=== PATIENT | male | born 1980 | race Caucasian/White ===

== ENCOUNTER 2023-10-04 09:24 | Emergency (ER) | payer OTHER, SELFPAY ==
[2023-10-04 09:27] VITALS: BP 157/99
[2023-10-04 10:06] LABS: % Basophils 0.6 % (0-2); % Eosinophils 0.4 % (0-6); % Immature Granulocytes 0.3 % (0-0.5); % Lymphocytes 11.7 % (20.5-51.1); % Monocytes 5.9 % (1.7-9.3); % Neutrophils 81.1 % (42.2-75.2); Absolute Basophils 0.1 10^3/uL (0-0.2); Absolute Eosinophils 0.1 10^3/uL (0-0.7); Absolute Immature Granulocytes 0.1 10^3/uL (0-0.05); Absolute Lymphocytes 1.9 10^3/uL (1.2-3.4); Absolute Monocytes 0.9 10^3/uL (0.1-0.6); Absolute Neutrophils 12.9 10^3/uL (1.4-6.5); Hematocrit 42.6 % (39.0-52.0); Hemoglobin 15.2 g/dL (13.0-18.0); Mean Corp Hgb Conc. 35.7 g/dL (33.0-37.0); Mean Corpuscular Hgb 34.4 pg (27.0-31.0); Mean Corpuscular Volume 96.4 fL (80.0-94.0); Mean Platelet Volume 10.2 fL (7.4-10.4); Nucleated Red Blood Cells % 0 % (-); Platelet Count 220 10^3/uL (130-400); Red Blood Cell Count 4.42 10^6/uL (4.70-6.10)
[2023-10-04 10:16] LABS: ALT (SGPT) 90 U/L (0-50); AST (SGOT) 78 U/L (17-59); Albumin 4.7 g/dl (3.5-5.0); Alkaline Phosphatase 74 U/L (38-126); Blood Urea Nitrogen 16 mg/dl (9-20); Calcium 9.7 mg/dl (8.4-10.2); Carbon Dioxide 31 mmol/L (22-30); Chloride 102 mmol/L (98-107); Glucose 96 mg/dl (70-99); Potassium 4.5 mmol/L (3.5-5.1); Sodium 139 mmol/L (135-145); Total Protein 6.9 g/dl (6.3-8.2); eGFR > 60.00
--- NOTE | 2023-10-04 10:17 | ED.GENMED ---
History of Present Illness
General
Chief Complaint: Chest Pain
Source: patient
Time Seen by Provider: 10/04/23 09:56
History of Present Illness
History of Present Illness:
This patient is a 43-year-old male presents emergency department complaints of pain across the front of his chest that started approximately 6 AM this morning. The pain continues and is worse with certain movements such as turning or taking a deep
breath. He describes the pain as 'sharp' without radiation. He denies recent immobilization or trauma, history of DVT in him or family members, leg swelling. He is not an active smoker. He denies dyspnea, dizziness, fever, chills, cough, sore
throat, rhinorrhea, abdominal pain, or other complaints
Past History
Past History
ED Past Medical History: None
ED Past Surgical History: Other (Basal cell cancer removal)
Social History
Tobacco: Former smoker
Alcohol: Occasional
Drug: None
Personal:
Living: with family
Employment: Employed
Family History
Family History: CAD; Negative Early CAD
Phy Exam
Physical Exam
Physical Exam:
GENERAL: Alert , in no apparent distress, extremely well-appearing
EYE: pupils equal and reactive
NECK: Supple, no significant adenopathy.
ENT: o/p clr, mmm.
CARDIAC: Regular rate and rhythm .
LUNGS: Clear breath sounds bilaterally, no acute respiratory distress, no wheezes/rales/rhonchi
ABDOMEN: Soft, without focal tenderness, no r/g, no cvat
NEUROLOGICAL: Alert and oriented, no focal neuro deficits
SKIN: Warm and dry, skin intact.
MUSCULOSKELETAL: No edema, well perfused.
PSYCH: Normal and appropriate interaction.
Scores
Heart Score for Chest Pain Patients
STEMI patient?: Not applicable
Course
Orders/Labs/Results
Orders:
Orders
10/04/23 09:28
Electrocardiogram (*1) Urgent
Reason for Study: Chest Pain
10/04/23 09:29
EKG- Treatment ONCE
10/04/23 09:55
Complete Blood Count/With Diff Urgent
Comprehensive Metabolic Panel Urgent
Troponin I Urgent
10/04/23 09:57
CR Chest - 2 Views Urgent
Comment:
Reason For Exam: cp to neck
10/04/23 10:16
Add On- LAB Urgent
Tests Added?: d dimer
Ketorolac [Toradol] 10 mg IV NOW STA
10/04/23 10:29
D-Dimer Routine
Comment: CAN NOT BE ADDED ON
Abnormal Lab Results
10/04/23
09:55
WBC 16.0 H 10^3/uL
(4.8-10.8)
RBC 4.42 L 10^6/uL
(4.70-6.10)
MCV 96.4 H fL
(80.0-94.0)
MCH 34.4 H pg
(27.0-31.0)
Abs Immat Gran (auto) 0.1 H 10^3/uL
(0-0.05)
Absolute Neuts (auto) 12.9 H 10^3/uL
(1.4-6.5)
Absolute Monos (auto) 0.9 H 10^3/uL
(0.1-0.6)
Neutrophils % 81.1 H %
(42.2-75.2)
Lymphocytes % 11.7 L %
(20.5-51.1)
Carbon Dioxide 31 H mmol/L
(22-30)
AST 78 H U/L
(17-59)
ALT 90 H U/L
(0-50)
10/04/23 09:55
10/04/23 09:55
Vital Signs
Initial and Last Documented VS:
Initial Vital Signs
Temp Pulse Resp BP Pulse Ox
98.0 F 74 16 157/99 99
10/04/23 09:27 10/04/23 09:27 10/04/23 09:27 10/04/23 09:27 10/04/23 09:27
Last Documented Vital Signs
Temp Pulse Resp BP Pulse Ox
98.0 F 78 11 157/99 99
10/04/23 09:27 10/04/23 11:00 10/04/23 11:00 10/04/23 09:27 10/04/23 11:00
*Critical Care Note
Total Time (30-74mins, 75-104mins- exclusive of procedures): Not Applicable
Update Note
Update Note:
Patient presents to the Emergency Department with ___anterior chest pain
Number and Complexity of Problems Addressed at the Encounter
� Chronic conditions affecting care:
� Acute Exacerbation and/or Progression of Chronic Illness:
� Differential Diagnosis includes: But not limited to pleurisy, ACS, PE, pneumothorax, pneumonia, etc. etc.
Amount and/or Complexity of Data to be Reviewed and Analyzed
� I performed an independent evaluation of and my interpretation is:
EKG: Read by me, normal sinus rhythm, normal rate, normal axis, no acute ischemia
CT:
Xrays: Read by me and radiology unremarkable
Laboratory Studies: Nonspecific leukocytosis
Other:
� Review of other/old records reveals:
� Clinical information was obtained by an independent historian:
� Prescriptions/Medications Considered but not given:
� Further testing considered but not performed:
Risk of Complications and/or Morbidity or Mortality of Patient Management
� Social determinants of health affecting care:
� Discussion with other providers (PCP, Hospitalists, Consultants, etc): 11:40 AM reexamination of patient, no specific etiology for leukocytosis noted, he denies recent fever, chills, sweats, steroid or medications, etc. Repeat
and thorough examination done of HEENT given that pain reportedly radiated up to lower neck, his voice is clear, no trouble swallowing, no no nuchal rigidity, trachea midline, no lymphadenopathy redness, etc. noted. Patient made aware of
leukocytosis and importance of close follow-up and reasons to return the emergency department.
� Escalation of care including admission/observation vs risk of discharge considered:
ED Attending Note
-
Portions of this chart may have been created with voice recognition software.� Occasional wrong word or��sound alike� substitutions may have occurred due to the inherent limitations of voice recognition software.
Discharge Plan
Departure
Patient Disposition: Home (Routine Discharge)
Date of Disposition: 10/04/23
Time of Disposition: 11:41
Patient with high blood pressure during this ER visit?: Yes
Condition: Good
Discharge Problem:
Chest pain
Instructions: BLOOD PRESSURE, Chest Pain
Prescriptions:
No Action
omeprazole magnesium [Prilosec OTC] 20 MG tablet,delayed release (DR/EC)
20 mg PO DAILY
oxycodone-acetaminophen 5 MG/325 MG tablet
1 tab PO Q6HPRN PRN (Reason: Pain) Qty: 8 0RF
Referrals:
Adams Rodriguez DO [Family Provider] - Follow up in 2-3 days
Activity Restrictions/Additional Instructions:
YOUR WORKUP HERE WAS UNREMARKABLE WITH THE EXCEPTION OF AN ELEVATION OF YOUR WHITE BLOOD CELL COUNTS. THIS NEEDS TO BE REEVALUATED BY YOUR DOCTOR WITHIN A WEEK. IF YOU DEVELOP WORSENING OR NEW PAIN, COUGH, NECK PAIN, TROUBLE SWALLOWING, FEVER,
CHILLS, SWEATS, GET WORSE, DO NOT GET BETTER, OR OTHER WORRISOME SIGNS, PLEASE RETURN TO THE ER IMMEDIATELY.
Interventions
Interventions:
*Risk Screen - Suicide Last Done: 10/04/23 10:07
*General Assessment Last Done: 10/04/23 10:07
*Neglect/Abuse Screening Last Done: 10/04/23 10:07
ED- Fall Risk Assessment Last Done: 10/04/23 10:07
ED- Cardiac Assessment Last Done: 10/04/23 10:07
Discharge Date and Time
Print Language: ESTONIAN
[2023-10-04] MEDS: TORADOL 10 MG IV (10:29)
[2023-10-04 10:31] LABS: Troponin I < 0.012 ng/ml
[2023-10-04 11:00] LABS: D-Dimer 0.39 ug/mlFEU (0.00-0.50)
[2023-10-04 11:12] VITALS: BP 143/90
== END 2023-10-04 11:51 | disposition home or self-care (01) ==
LOC: EMR 09:24
PROVIDERS: EMERGENCY PHYSICIAN Emergency Medicine; FAMILY PHYSICIAN Internal Medicine
DX: R07.89 Other chest pain (principal); R03.0 Elevated blood-pressure reading, without diagnosis of hypertension; Z87.891 Personal history of nicotine dependence
CPT/HCPCS: 99285; 96374; 71046; 80053; 84484; 85025; 85379; 93005